=== PATIENT | female | born 1945 | race African-American/Black ===

== ENCOUNTER → 2021-02-13 | Outpatient (CLI) | payer OTHER ==
[2021-02-13 10:27] LABS: CREATININE, SERUM 1.67 mg/dL (0.57-1.11)
== END ==
LOC: CT 09:46
PROVIDERS: ATTEND Internal Medicine
DX: R79.89 Other specified abnormal findings of blood chemistry (principal)
CPT/HCPCS: 36415; 82565; 84520

== ENCOUNTER → 2021-02-25 | Outpatient (CLI) | payer MEDICARE | LOC: NM 09:34 | PROVIDERS: ATTEND Internal Medicine | DX: R79.1 Abnormal coagulation profile (principal) | CPT/HCPCS: 78580; A9540 ==